=== PATIENT | female | born 1975 | race Caucasian/White ===

== ENCOUNTER 2016-12-13 21:11 | Emergency (ER) | payer MEDICAID, OTHER ==
[~2016-12-13] VITALS: Ht 149.9 cm; Wt 72.6 kg
[~2016-12-13 21:11] MED LIST: ASPI81CT89 PO; ATOR20TA PO; METF1000 PO; OMEP40EC1 PO
[2016-12-13 21:26] VITALS: BP 139/99
--- NOTE | 2016-12-13 22:07 | NUR ---
TO ER OF2
--- NOTE | 2016-12-13 22:12 | NUR ---
Patient being evaluated by physician.
[2016-12-13] MEDS ORDERED: NACL 0.9% 1,000 ML IV ONE (22:22)
[2016-12-13] MEDS ORDERED: ONDANSETRON 4 MG/2 ML VIAL IVP ONE (22:25)
[2016-12-13] MEDS ORDERED: MORPHINE SULFATE 4 MG/ML SYR IVP ONE (22:25)
--- NOTE | 2016-12-13 23:00 | NUR ---
MOVED TO ER BED 7
--- NOTE | 2016-12-13 23:10 | NUR ---
received pt from overflow
[2016-12-13 23:25] LABS: BASOPHILS # (AUTO) 0.1 K/uL (0.00-0.22); BASOPHILS % (AUTO) 1.6 % (0.0-2.0); EOSINOPHILS # (AUTO) 0.2 K/uL (0-0.4); EOSINOPHILS % (AUTO) 2.1 % (0.0-4.0); HEMATOCRIT 48.9 % (36-48); HEMOGLOBIN 16.6 g/dL (12.0-16.0); LYMPHOCYTES # (AUTO) 2.1 K/uL (2.5-16.5); LYMPHOCYTES % (AUTO) 28.1 % (20.5-51.1); MEAN CORPUSCULAR HEMOGLOBIN 31 pg (27-31); MEAN CORPUSCULAR HGB CONC 34 g/dL (33-37); MEAN CORPUSCULAR VOLUME 90 fL (80-94); MONOCYTES # (AUTO) 0.5 K/uL (0.8-1.0); MONOCYTES % (AUTO) 7.3 % (1.7-9.3); NEUTROPHILS # (AUTO) 4.5 K/uL (1.8-7.7); NEUTROPHILS % (AUTO) 60.9 % (42.2-75.2); PLATELET COUNT (AUTO) 249 K/uL (140-450); RED BLOOD CELL COUNT(AUTO) 5.42 MIL/uL (4.20-5.40); RED CELL DISTRIBUTION WIDTH 12.1 % (11.6-13.7); WHITE BLOOD COUNT (AUTO) 7.4 K/uL (4.8-10.8)
[2016-12-13 23:38] LABS: ALBUMIN 3.9 g/dL (3.4-5.0); ANION GAP 14.9 (8-16); CALCIUM 9.3 mg/dL (8.5-10.1); CARBON DIOXIDE 26.3 mmol/L (21-32); CREATININE 0.9 mg/dL (0.6-1.3); POTASSIUM 4.2 mmol/L (3.5-5.1); TOTAL BILIRUBIN 0.5 mg/dL (0.0-1.0); TOTAL PROTEIN, SERUM 8.4 g/dL (6.4-8.2)
[2016-12-13 23:56] LABS: LACTIC ACID 3.2 mmol/L (0.4-2.0)
[2016-12-14] MEDS ORDERED: NACL 0.9% 1,500 ML IV ONE
[2016-12-14] MEDS ORDERED: DICYCLOMINE 20 MG/2 ML VIAL IM ONE (00:10)
[2016-12-14] MEDS ORDERED: MORPHINE SULFATE 4 MG/ML SYR IVP ONE (00:10)
[2016-12-14] MEDS ORDERED: ONDANSETRON 4 MG/2 ML VIAL IVP ONE (00:10)
[2016-12-14 00:23] LABS: APPEARANCE,URINE CLOUDY (CLEAR); BILIRUBIN,URINE NEGATIVE (NEGATIVE); BLOOD, URINE 3+ (NEGATIVE); COLOR,URINE RED (YELLOW); LEUKOCYTE ESTERASE ,URINE NEGATIVE (NEGATIVE); NITRITE, URINE NEGATIVE (NEGATIVE); PROTEIN,URINE 1+ (NEGATIVE); UGLUCOSE 3+ (NEGATIVE); UROBILINOGEN,URINE 0.2 EU/dL (0.2 - 1)
[2016-12-14 00:27] LABS: BACTERIA,URINE OCCASSIONAL /HPF (None Seen); RBC,URINE TOO NUMEROUS TO COUN /HPF (0-5); SQUAMOUS EPITHELIAL CELL,UR 0-3 (FEW) /LPF (0-3 (FEW))
--- NOTE | 2016-12-14 02:34 | NUR ---
Patient discharged with v/s stable. Written and verbal after care instructions given and explained. Patient alert, oriented and verbalized understanding of instructions. Ambulatory with steady gait. All questions addressed prior to discharge. ID band removed. Patient advised to follow up with PMD. Rx of Bentyl, Cipro and Zofran given. Patient educated on indication of medication including possible reaction and side effects. Opportunity to ask questions provided and answered.
[2016-12-14 02:36] VITALS: BP 122/80
== END 2016-12-14 02:36 | disposition home or self-care (01) ==
LOC: MED 21:11
DX: N39.0 Urinary tract infection, site not specified (principal); R73.9 Hyperglycemia, unspecified; E11.9 Type 2 diabetes mellitus without complications; I10 Essential (primary) hypertension; Z90.49 Acquired absence of other specified parts of digestive tract
CPT/HCPCS: 36415; 74176; 80053; 81001; 81025; 83605; 83690; 85025; 87040; 87086; 96361; 96372; 96374; 96375; 96376; 99285; J0500; J2270; J2405; J7030

== ENCOUNTER 2017-04-06 19:35 | Emergency (ER) | payer OTHER ==
[~2017-04-06] VITALS: Ht 149.9 cm; Wt 72.6 kg
[2017-04-06 19:52] VITALS: BP 155/85
--- NOTE | 2017-04-06 20:04 | NUR ---
PT TAKEN TO BED 1
--- NOTE | 2017-04-06 20:10 | NUR ---
PATIENT PRESENTS TO ED WITH C/O BACK PAIN AND N/V/D SINCE LAST WEEK PT SKIN IS PINK/WARM/DRY; AAOX4 WITH EVEN AND STEADY GAIT; LUNGS CLEAR BL; HR EVEN AND REGULAR; PT DENIES ANY FEVER, CP, SOB, OR COUGH AT THIS TIME; PATIENT STATES PAIN OF 10/10 AT THIS TIME; VSS; PATIENT POSITIONED FOR COMFORT; HOB ELEVATED; BEDRAILS UP X2; BED DOWN. ER MD MADE AWARE OF PT STATUS.
--- NOTE | 2017-04-06 20:15 | NUR ---
PT MOVED TO OF
--- NOTE | 2017-04-06 21:47 | NUR ---
PT MOVED TO BED 2
--- NOTE | 2017-04-06 22:39 | NUR ---
Dr. Alexander evaluating patient at bedside.
[2017-04-06] MEDS ORDERED: NACL 0.9% 1,000 ML IV SCH (23:02)
[2017-04-06] MEDS ORDERED: metroNIDAZOLE 500 MG/NS PREMIX 100 ML IV STA (23:02)
[2017-04-06] MEDS ORDERED: MORPHINE SULFATE 2 MG/ML SYR IVP ONE (23:05)
[2017-04-06] MEDS ORDERED: ONDANSETRON 4 MG/2 ML VIAL IVP ONE (23:05)
--- NOTE | 2017-04-06 23:16 | NUR ---
PT TAKEN TO CT
[2017-04-06] MEDS ORDERED: MORPHINE SULFATE 4 MG/ML SYR ONE (23:22)
[2017-04-06 23:39] LABS: HEMATOCRIT 42.7 % (36-48); HEMOGLOBIN 14.6 g/dL (12.0-16.0); MEAN CORPUSCULAR HEMOGLOBIN 31 pg (27-31); MEAN CORPUSCULAR HGB CONC 34 g/dL (33-37); MEAN CORPUSCULAR VOLUME 92 fL (80-94); PLATELET COUNT (AUTO) 223 K/uL (140-450); RED BLOOD CELL COUNT(AUTO) 4.66 MIL/uL (4.20-5.40); RED CELL DISTRIBUTION WIDTH 11.6 % (11.6-13.7); WHITE BLOOD COUNT (AUTO) 5.6 K/uL (4.8-10.8)
[2017-04-06 23:53] LABS: ALBUMIN 3.5 g/dL (3.4-5.0); ANION GAP 16.4 (8-16); CARBON DIOXIDE 27.3 mmol/L (21-32); CREATININE 0.6 mg/dL (0.6-1.3); POTASSIUM 3.7 mmol/L (3.5-5.1); TOTAL BILIRUBIN 0.5 mg/dL (0.0-1.0)
[2017-04-07 00:04] LABS: APPEARANCE,URINE CLOUDY (CLEAR); BILIRUBIN,URINE NEGATIVE (NEGATIVE); BLOOD, URINE 1+ (NEGATIVE); COLOR,URINE YELLOW (YELLOW); LEUKOCYTE ESTERASE ,URINE TRACE (NEGATIVE); NITRITE, URINE NEGATIVE (NEGATIVE); UGLUCOSE 3+ (NEGATIVE)
[2017-04-07 00:14] LABS: LYMPHOCYTES % (MANUAL) 42 % (20-46); MONOCYTES % (MANUAL) 2 % (5-12)
[2017-04-07] MEDS ORDERED: MORPHINE SULFATE 4 MG/ML SYR IVP ONE (00:30)
[2017-04-07 00:44] LABS: RBC,URINE 3-10 (FEW) /HPF (0-5); WBC,URINE TOO MANY TO COUNT /HPF (0-5)
[2017-04-07 00:45] LABS: YEAST,URINE Many /HPF (None Seen)
--- NOTE | 2017-04-07 01:21 | NUR ---
Patient discharged with v/s stable. Written and verbal after care instructions given and explained. Patient alert, oriented and verbalized understanding of instructions. Ambulatory with steady gait. All questions addressed prior to discharge. ID band removed. Patient advised to follow up with PMD. Rx of NORCO, ZOFRAN AND FLAGYL given. Patient educated on indication of medication including possible reaction and side effects. Opportunity to ask questions provided and answered.
[2017-04-07 01:23] VITALS: BP 135/81
== END 2017-04-07 01:21 | disposition home or self-care (01) ==
LOC: MED 19:35
DX: M54.5 Low back pain (principal); R10.9 Unspecified abdominal pain; R19.7 Diarrhea, unspecified; R63.0 Anorexia; E11.9 Type 2 diabetes mellitus without complications; I10 Essential (primary) hypertension; Z90.49 Acquired absence of other specified parts of digestive tract; Z79.899 Other long term (current) drug therapy; Z79.84 Long term (current) use of oral hypoglycemic drugs
CPT/HCPCS: 36415; 74176; 80053; 81001; 81025; 83690; 85025; 87086; 96365; 96375; 96376; 99285; J2270; J2405; J3490; J7030; 84703

== ENCOUNTER 2017-06-11 12:04 | Emergency (ER) | payer OTHER ==
[~2017-06-11] VITALS: Ht 149.9 cm; Wt 69.4 kg
[2017-06-11 12:08] VITALS: BP 160/106
--- NOTE | 2017-06-11 12:12 | NUR ---
EKG DONE IN TRIAGE. SHOWN TO DR. ARAYA. PT OKAY TO WAIT IN ER LOBBY FOR BED.
--- NOTE | 2017-06-11 13:32 | NUR ---
PT TAKEN TO BED 11.
[2017-06-11] MEDS ORDERED: ASPIRIN 81 MG TAB.CHEW PO ONE (14:15)
[2017-06-11] MEDS ORDERED: KETOROLAC 60 MG/2 ML VIAL IM ONE (14:15)
[2017-06-11 15:01] LABS: BASOPHILS # (AUTO) 0.3 K/uL (0.00-0.22); EOSINOPHILS # (AUTO) 0.1 K/uL (0-0.4); HEMATOCRIT 46.5 % (36-48); HEMOGLOBIN 15.9 g/dL (12.0-16.0); LYMPHOCYTES # (AUTO) 1.7 K/uL (2.5-16.5); MEAN CORPUSCULAR HEMOGLOBIN 31 pg (27-31); MEAN CORPUSCULAR HGB CONC 34 g/dL (33-37); MEAN CORPUSCULAR VOLUME 90 fL (80-94); MONOCYTES # (AUTO) 0.3 K/uL (0.8-1.0); NEUTROPHILS # (AUTO) 4.1 K/uL (1.8-7.7); PLATELET COUNT (AUTO) 212 K/uL (140-450); RED BLOOD CELL COUNT(AUTO) 5.16 MIL/uL (4.20-5.40); RED CELL DISTRIBUTION WIDTH 11.6 % (11.6-13.7); WHITE BLOOD COUNT (AUTO) 6.5 K/uL (4.8-10.8)
[2017-06-11] MEDS ORDERED: INSULIN HUMAN REGULAR 100 UNITS/ML 10 ML VIAL SUBQ ONE (15:15)
[2017-06-11 15:19] LABS: ANION GAP 13.2 (8-16); CARBON DIOXIDE 29.7 mmol/L (21-32); CREATININE 0.7 mg/dL (0.6-1.3); POTASSIUM 4.9 mmol/L (3.5-5.1); PROTHROMBIN TIME 9.7 secs (10.8-13.4)
[2017-06-11 15:26] LABS: ALBUMIN 3.8 g/dL (3.4-5.0); TOTAL BILIRUBIN 0.6 mg/dL (0.0-1.0)
[2017-06-11 17:08] VITALS: BP 109/74
== END 2017-06-11 17:08 | disposition home or self-care (01) ==
LOC: MED 12:04
DX: R07.89 Other chest pain (principal); E11.9 Type 2 diabetes mellitus without complications; I10 Essential (primary) hypertension
CPT/HCPCS: 36415; 71045; 80053; 82948; 83880; 84484; 85025; 85610; 85730; 93005; 96372; 99285; J1815; J1885; Q0092

== ENCOUNTER 2018-05-31 18:49 | Inpatient (IN) | payer OTHER ==
[~2018-05-31] VITALS: Ht 149.9 cm; Wt 68.0 kg
[~2018-05-31 18:49] MED LIST changes: -ASPI81CT89 PO; -OMEP40EC1 PO
[2018-05-31 19:22] VITALS: BP 157/100
--- NOTE | 2018-05-31 19:25 | NUR ---
PT AMBULATED TO BED 6 WITH VSS.
--- NOTE | 2018-05-31 19:38 | NUR ---
PT PRESENTS TO ED WITH C/O RUQ PAIN WITH NAUSEA, DIARRHEA WITH SUDDEN ONSET X 2 HRS. ABD IS SOFT, NON TENDER. PT REPORTS PAIN UPON PALAPTION TO RUQ. BOWEL SOUNDS ACTIVE TO ALL QUADRANTS. PT PLACED INTO BED, PENDING MD PRATER. PMH--DM, HTN RX--METFORMIN, METOPROLOL
--- NOTE | 2018-05-31 19:41 | NUR ---
Patient being evaluated by physician at bedside.
[2018-05-31] MEDS ORDERED: NACL 0.9% 1,000 ML IV SCH (19:42)
[2018-05-31] MEDS ORDERED: ONDANSETRON 4 MG/2 ML VIAL IVP ONE (19:45)
[2018-05-31] MEDS ORDERED: KETOROLAC 30 MG/ML VIAL IVP ONE (19:45)
[2018-05-31 20:07] LABS: BASOPHILS % (AUTO) 0.3 % (0.0-2.0); EOSINOPHILS % (AUTO) 0.5 % (0.0-4.0); HEMATOCRIT 48.1 % (36-48); HEMOGLOBIN 16.3 g/dL (12.0-16.0); LYMPHOCYTES # (AUTO) 1.6 K/uL (2.5-16.5); LYMPHOCYTES % (AUTO) 20.3 % (20.5-51.1); MEAN CORPUSCULAR HEMOGLOBIN 32 pg (27-31); MEAN CORPUSCULAR HGB CONC 34 g/dL (33-37); MEAN CORPUSCULAR VOLUME 92.9 fL (80-94); MONOCYTES # (AUTO) 0.4 K/uL (0.8-1.0); MONOCYTES % (AUTO) 5.3 % (1.7-9.3); NEUTROPHILS # (AUTO) 5.7 K/uL (1.8-7.7); NEUTROPHILS % (AUTO) 73.6 % (42.2-75.2); PLATELET COUNT (AUTO) 187 K/uL (140-450); RED BLOOD CELL COUNT(AUTO) 5.18 MIL/uL (4.20-5.40); RED CELL DISTRIBUTION WIDTH 12.7 % (11.6-13.7); WHITE BLOOD COUNT (AUTO) 7.7 K/uL (4.8-10.8)
[2018-05-31 20:09] LABS: BILIRUBIN,URINE NEGATIVE (NEGATIVE); BLOOD, URINE 1+ (NEGATIVE); COLOR,URINE YELLOW (YELLOW); LEUKOCYTE ESTERASE ,URINE NEGATIVE (NEGATIVE); NITRITE, URINE NEGATIVE (NEGATIVE); UGLUCOSE 3+ (NEGATIVE)
[2018-05-31 20:10] LABS: APPEARANCE,URINE HAZY (CLEAR)
[2018-05-31 20:16] LABS: RBC,URINE 3-10 (FEW) /HPF (0-5); WBC,URINE 6-15 (FEW) /HPF (0-5); YEAST,URINE Few /HPF (None Seen)
[2018-05-31 20:21] LABS: ALBUMIN 3.7 g/dL (3.4-5.0); ANION GAP 16.6 (8-16); CARBON DIOXIDE 23.4 mmol/L (21-32); CREATININE 0.8 mg/dL (0.6-1.3); TOTAL BILIRUBIN 0.4 mg/dL (0.0-1.0)
[2018-05-31] MEDS ORDERED: MORPHINE SULFATE 4 MG/ML SYR IVP ONE (20:50)
[2018-05-31] MEDS ORDERED: PIPERACILLIN/TAZOBACTAM 3.375 GM in DEXTROSE 5% 50 ML IV ONE (21:00)
[2018-05-31] MEDS ORDERED: MORPHINE SULFATE 4 MG/ML SYR ONE (21:05)
[2018-05-31] MEDS ORDERED: PIPERACILLIN/TAZOBACTAM 3.375 GM VIAL IV ONE (21:13)
--- NOTE | 2018-05-31 21:30 | NUR ---
PT ARRIVED ON UNIT VIA GURNEY WITH ER NURSE, ALEXANDR. PT ABLE OT AMBULATE FORM GURNEY INTO BED. PT ACCOMPANIED BY DAUGHTER. PT IS AAOX4. PT IS ON RA WITH RESPIRATIONS EVEN AND UNLABORED. PT SKIN IS INTACT. IV ACCESS IN R WRIST 24G WITH ZOSYN CURRENTLY INFUSING. PT C/O PAIN IN RUQ. MRSA SWAB COLLECTED. VS TAKEN AND WNL. ORIENTED PT TO ROOM AND USE OF CALL LIGHT. BED IS LOCKED, LOW POSITION WITH SIDE RAILS UP X2. BOARD UPDATED. CALL LIGHT IS WITHIN REACH. WILL CONTINUE TO MONITOR PT.
--- NOTE | 2018-05-31 21:30 | NUR ---
Patient will be admitted to care of DR SIMEON. Admited to MED/SURG. Will go to room 104-B. Belongings list completed. Report to MITCH CUELLAR.
[2018-05-31] MEDS ORDERED: DEXTROSE 50% 50 ML SYR IVP PRN (22:20)
--- NOTE | 2018-05-31 23:02 | NUR ---
PT IV INFILTRATED. TWO ATTEMPTS MADE AT STARTING NEW IV ACCESS, UNSUCCESSFUL. CALLED ER CHARGE NURSE, TORO, WILL COME TO TRY AND START IV.
[2018-06-01] VITALS: BP 139/96
--- NOTE | 2018-06-01 00:11 | NUR ---
IV ACCESS STARTED IN L HAND 24G. PT TOLERATED WELL. NO S/S OF DISTRESS. WILL CONTINUE TO MONITOR.
[2018-06-01] MEDS: ONDANSETRON 4 MG/2 ML VIAL IVP PRN ×3 (00:23→20:40)
[2018-06-01] MEDS: MORPHINE SULFATE 4 MG/ML SYR IVP PRN ×4 (00:23→14:47)
[2018-06-01] MEDS: NACL 0.9% 1,000 ML IV SCH ×3 (00:33→20:45)
--- NOTE | 2018-06-01 00:33 | NUR ---
ORDERED IVF STARTED.
--- NOTE | 2018-06-01 01:23 | NUR ---
PT ASLEEP IN BED. NO SIGNS OR SYMPTOMS OF DISTRESS. WILL CONTINUE TO MONITOR.
--- NOTE | 2018-06-01 03:23 | NUR ---
PT C/O PAIN, MORPHINE GIVEN. PT TOLERATED WELL. NO S/S OF DISTRESS. WILL CONTINUE TO MONITOR.
[2018-06-01] MEDS ORDERED: PIPERACILLIN/TAZOBACTAM 3.375 GM VIAL IV ONE (05:20)
[2018-06-01] MEDS: BLOOD GLUCOSE MONITORING 1 DEV DEV FS SCH ×4 (05:26→20:40)
[2018-06-01] MEDS: INSULIN LISPRO SLIDING SCALE 100 UNITS/ML VIAL SUBQ PRN ×3 (05:30→20:44)
--- NOTE | 2018-06-01 05:30 | NUR ---
SCHEDULED MEDICATION ADMINISTERED. INSULIN COVERAGE GIVEN FOR BS 294 PER MD ORDERS. PT TOLERATED WELL. NO SIGNS OR SYMPTOMS OF DISTRESS. WILL CONTINUE TO MONITOR.
[2018-06-01] MEDS ORDERED: PIPER/TAZO 3.375GM/D5W PREMIX 50 ML IV SCH (06:00)
[2018-06-01 06:59] LABS: BASOPHILS % (AUTO) 0.5 % (0.0-2.0); EOSINOPHILS # (AUTO) 0.1 K/uL (0-0.4); EOSINOPHILS % (AUTO) 1.1 % (0.0-4.0); HEMATOCRIT 44.8 % (36-48); LYMPHOCYTES # (AUTO) 2.6 K/uL (2.5-16.5); MEAN CORPUSCULAR HEMOGLOBIN 31 pg (27-31); MEAN CORPUSCULAR HGB CONC 34 g/dL (33-37); MEAN CORPUSCULAR VOLUME 93.6 fL (80-94); MONOCYTES # (AUTO) 0.3 K/uL (0.8-1.0); MONOCYTES % (AUTO) 5.3 % (1.7-9.3); NEUTROPHILS # (AUTO) 2.3 K/uL (1.8-7.7); NEUTROPHILS % (AUTO) 44.1 % (42.2-75.2); PLATELET COUNT (AUTO) 207 K/uL (140-450); RED BLOOD CELL COUNT(AUTO) 4.79 MIL/uL (4.20-5.40); RED CELL DISTRIBUTION WIDTH 12.7 % (11.6-13.7); WHITE BLOOD COUNT (AUTO) 5.2 K/uL (4.8-10.8)
--- NOTE | 2018-06-01 07:10 | NUR ---
PT REPORT RECEIVED FROM DAYCARE ASSISTANT NURSE. PT IS AWAKE AT THIS TIME, NO S/S OF DISTRESS, SOB, OR C/O PAIN AT THIS TIME. CALL LIGHT IS WITHIN REACH. PT IS ON ROOM AIR, SKIN IS INTACT. IV SITE NOTED ON THE L HAND, 24 GAUGE, INFUSING NS 70 ML/HR. IV PATENT AND INTACT. WILL CONTINUE TO MONITOR.
--- NOTE | 2018-06-01 07:23 | NUR ---
ENDORSED PT TO DAY SHIFT NURSE FOR CONTINUITY OF CARE. PT IN STABLE CONDITION.
[2018-06-01 07:40] LABS: ALBUMIN 3.2 g/dL (3.4-5.0); ANION GAP 13.3 (8-16); CARBON DIOXIDE 26.3 mmol/L (21-32); CREATININE 0.7 mg/dL (0.6-1.3); POTASSIUM 3.6 mmol/L (3.5-5.1); TOTAL BILIRUBIN 0.5 mg/dL (0.0-1.0)
[2018-06-01 08:00] VITALS: BP 103/65
--- NOTE | 2018-06-01 08:19 | NUR ---
PATIENT HAS BEEN SCREENED AND CATEGORIZED MODERATE NUTRITION RISK. PATIENT WILL BE SEEN WITHIN 3-5 DAYS OF ADMISSION. 06/03/18 06/05/[address]
--- NOTE | 2018-06-01 08:20 | NUR ---
PT C/O 01/02 ABD PAIN AND NAUSEA. WILL ADMINISTER PAIN MEDICINE AND NAUSEA MEDICINE.
--- NOTE | 2018-06-01 10:20 | NUR ---
PT AWAKE AND ALERT, NO S/S OF ACUTE DISTRESS. DAUGHTER VISITING AT BEDSIDE. CALL LIGHT WITHIN REACH. WILL CONTINUE TO MONITOR.
--- NOTE | 2018-06-01 10:44 | NUR ---
PT OFF THE FLOOR FOR ABD CT SCAN AT THIS TIME.
--- NOTE | 2018-06-01 11:00 | NUR ---
PT BACK ON THE UNIT FROM CT SCAN.
[2018-06-01] MEDS: PIPER/TAZO 3.375GM/D5W PREMIX 50 ML IV SCH ×2 (13:02→20:40)
--- NOTE | 2018-06-01 13:02 | NUR ---
CM NOTE PER SASCHA OF DR. YASMEEN HARRISON' (PCP) CLINIC PH# [phone], PATIENT IS SCHEDULED FOR OUTPATIENT FOLLOW UP APPOINTMENT ON JUNE 11, 2018 11:00 AM AT THE CLINIC AT [address] [place] [id number] Addendum: 06/01/18 at 1317 by Jaz Anderson CM I GAVE THE PATIENT A COPY OF HER OUTPATIENT FF UP SCHEDULE
--- NOTE | 2018-06-01 14:56 | NUR ---
CM NOTE CHART REVIEW DONE
[2018-06-01 16:00] VITALS: BP 97/60
--- NOTE | 2018-06-01 19:20 | NUR ---
RECEIVED REPORT FROM DAY SHIFT NURSE, SAMANTHA, AT PT BEDSIDE. PT IS ASLEEP IN BED BUT EASILY AROUSABLE. PT IS ON RA WITH RESPIRATIONS EVEN AND UNLABORED. PT SKIN IS INTACT. IV ACCESS IN L HAND 24G WITH IVF RUNNING PER MD ORDERS. IV IS PATENT AND INTACT. BED IS LOCKED, LOW POSITION WITH SIDE RAILS UP X2. BOARD UPDATED. CALL LIGHT IS WITHIN REACH. WILL CONTINUE TO MONITOR PT.
--- NOTE | 2018-06-01 19:20 | NUR ---
PT ENDORSED TO REGISTERED NURSE CARDIAC IN STABLE CONDITION.
[2018-06-01] MEDS: PANTOPRAZOLE 40 MG TABEC PO SCH (20:41)
--- NOTE | 2018-06-01 20:45 | NUR ---
ADMINISTERED SCHEDULED MEDICATIONS. PT C/O NAUSEA, ZOFRAN GIVEN. PT TOLERATED WELL. NO SIGNS OR SYMPTOMS OF DISTRESS. WILL CONTINUE TO MONITOR.
[2018-06-02] VITALS: BP 117/70
--- NOTE | 2018-06-02 00:03 | NUR ---
VS WNL. PT RESTING COMFORTABLY IN BED. NO SIGNS OR SYMPTOMS OF DISTRESS. WILL CONTINUE TO MONITOR.
--- NOTE | 2018-06-02 02:37 | NUR ---
PT ASLEEP IN BED. NO SIGNS OR SYMPTOMS OF DISTRESS. WILL CONTINUE TO MONITOR.
[2018-06-02] MEDS: NACL 0.9% 1,000 ML IV SCH (04:02)
--- NOTE | 2018-06-02 04:03 | NUR ---
NEW BAG OF IVF STARTED.
[2018-06-02] MEDS: BLOOD GLUCOSE MONITORING 1 DEV DEV FS SCH ×2 (05:32→11:30)
[2018-06-02] MEDS: PIPER/TAZO 3.375GM/D5W PREMIX 50 ML IV SCH ×2 (05:35→13:24)
[2018-06-02] MEDS: INSULIN LISPRO SLIDING SCALE 100 UNITS/ML VIAL SUBQ PRN ×2 (05:38→14:22)
--- NOTE | 2018-06-02 05:39 | NUR ---
ADMINISTERED SCHEDULED MEDICATION. INSULIN COVERAGE GIVEN FOR BS 232 PER MD ORDERS. PT TOLERATED WELL. ALL OTHER NEEDS ARE MET AT THIS TIME. WILL CONTINUE TO MONITOR.
--- NOTE | 2018-06-02 07:10 | NUR ---
RECEIVED PT REPORT FROM WALL WORKER NURSE. PT IS ASLEEP AT THIS TIME, NO S/S OF DISTRESS. ON ROOM AIR, SKIN INTACT. IV NS INFUSING AT 100 ML/HR. CALL LIGHT WITHIN REACH. WILL CONTINUE TO MONITOR.
--- NOTE | 2018-06-02 07:18 | NUR ---
ENDORSED PT TO DAY SHIFT NURSE FOR CONTINUITY OF CARE. PT IN STABLE CONDITION.
[2018-06-02 07:44] LABS: BASOPHILS % (AUTO) 0.5 % (0.0-2.0); EOSINOPHILS % (AUTO) 0.6 % (0.0-4.0); HEMATOCRIT 41.2 % (36-48); LYMPHOCYTES # (AUTO) 1.4 K/uL (2.5-16.5); LYMPHOCYTES % (AUTO) 27.9 % (20.5-51.1); MEAN CORPUSCULAR HEMOGLOBIN 32 pg (27-31); MEAN CORPUSCULAR HGB CONC 34 g/dL (33-37); MEAN CORPUSCULAR VOLUME 94.1 fL (80-94); MONOCYTES # (AUTO) 0.3 K/uL (0.8-1.0); NEUTROPHILS # (AUTO) 3.2 K/uL (1.8-7.7); PLATELET COUNT (AUTO) 194 K/uL (140-450); RED BLOOD CELL COUNT(AUTO) 4.38 MIL/uL (4.20-5.40); RED CELL DISTRIBUTION WIDTH 12.7 % (11.6-13.7)
[2018-06-02 08:00] VITALS: BP 104/66
[2018-06-02 08:28] LABS: ALBUMIN 2.7 g/dL (3.4-5.0); ANION GAP 12.7 (8-16); CARBON DIOXIDE 25.7 mmol/L (21-32); CREATININE 0.6 mg/dL (0.6-1.3); POTASSIUM 3.4 mmol/L (3.5-5.1); TOTAL BILIRUBIN 0.6 mg/dL (0.0-1.0)
[2018-06-02] MEDS ORDERED: POTASSIUM CHLORIDE 10 MEQ TABER PO SCH (09:30)
[2018-06-02] MEDS ORDERED: AMOX500C25 PO (09:34)
[2018-06-02] MEDS: PANTOPRAZOLE 40 MG TABEC PO SCH (09:40)
--- NOTE | 2018-06-02 09:40 | NUR ---
PT SEEN BY DR SIMEON. PER , PT CAN DISCHARGE IF SHE CAN TOLERATE SOLID FOOD. SANDWICH PROVIDED FOR PT. WILL CONTINUE TO MONITOR PT.
--- NOTE | 2018-06-02 14:45 | NUR ---
PT HAS DISCHARGED. DISCHARGE INSTRUCTIONS AND PRESCRIPTION GIVEN. PT VERBALIZED UNDERSTANDING AND SIGNED THE DISCHARGE DOCUMENTS. WRIST BAND REMOVED, IV SITE DC'D. PT REFUSED FLU VACCINE. PT LEFT WITH ALL HER BELONGINGS IN STABLE CONDITION.
== END 2018-06-02 14:40 | disposition home or self-care (01) | DRG 282 ==
LOC: MED 18:49 → MTU 21:03
PROVIDERS: ADMIT Internal Medicine; ATTEND Internal Medicine
DX: K85.90 Acute pancreatitis without necrosis or infection, unspecified (principal); E11.65 Type 2 diabetes mellitus with hyperglycemia; E87.1 Hypo-osmolality and hyponatremia; N39.0 Urinary tract infection, site not specified; E66.9 Obesity, unspecified; E78.5 Hyperlipidemia, unspecified; I10 Essential (primary) hypertension; Z90.49 Acquired absence of other specified parts of digestive tract; Z68.30 Body mass index [BMI] 30.0-30.9, adult
CPT/HCPCS: 36415; 80053; 81001; 82948; 83036; 83690; 84478; 85025; 87040; 87081; 87086; 96361; 96374; 96375; 99285; J1885; J2270; J2405; J2543; J7030; J7060

== ENCOUNTER 2019-01-03 00:20 | Emergency (ER) | payer OTHER ==
[~2019-01-03] VITALS: Ht 149.9 cm; Wt 65.8 kg
[~2019-01-03 00:20] MED LIST changes: +AMOX500C25 PO
[2019-01-03 00:24] VITALS: BP 160/96
[2019-01-03] MEDS: KETOROLAC 30 MG/ML VIAL IM ONE (01:48)
[2019-01-03] MEDS: TETRACAINE HCL/PF 0.5% OPTH 4 ML BTL OP ONE (02:18)
[2019-01-03] MEDS: FLUORESCEIN OPTH STRIP 0.6 MG OP ONE (02:18)
[2019-01-03] MEDS: fentaNYL 0.05 MG/ML VIAL NS ONE (02:56)
[2019-01-03 04:19] VITALS: BP 103/55
== END 2019-01-03 04:19 | disposition home or self-care (01) ==
LOC: MED 00:20
DX: R51 Headache (principal); H53.142 Visual discomfort, left eye; R11.0 Nausea; I10 Essential (primary) hypertension; E11.9 Type 2 diabetes mellitus without complications; Z86.79 Personal history of other diseases of the circulatory system; Z79.2 Long term (current) use of antibiotics; Z79.84 Long term (current) use of oral hypoglycemic drugs; Z79.899 Other long term (current) drug therapy; Z90.49 Acquired absence of other specified parts of digestive tract
CPT/HCPCS: 70450; 96372; 99284; J1885; J3010

== ENCOUNTER 2019-05-03 19:20 | Emergency (ER) | payer OTHER ==
[~2019-05-03] VITALS: Ht 149.9 cm; Wt 72.6 kg
[2019-05-03 19:20] VITALS: BP_SYST 132
--- NOTE | 2019-05-03 19:23 | NUR ---
TO LOBBY A/W BED AMBULATORY
--- NOTE | 2019-05-03 19:46 | NUR ---
PT TAKEN TO BED 6
--- NOTE | 2019-05-03 19:50 | NUR ---
Dr. Swenson examining patient.
--- NOTE | 2019-05-03 20:02 | NUR ---
pt arrived to ed c/o abd pain x friday. pain LEvel 10/10 and describes it as pressure. denies any fever, D,blood in urine, or dysuria. PT HAS VOMITING 3 EPISODES TOTAL, AND CHANGE OF APPETITE. PT IN APPEARNACE LOOKS WEAK, FATIGUE. NO RESP DISTRESS NOTED. ABD IS SOFT, FLAT, AND TENDER ON RIGHT QUADS. BS ACTIVE. DENIES ANY BLOOD IN THE STOOL OR VOMIT. VSS. NKA. PMH: DM,HTN, GALLSTONES.
[2019-05-03] MEDS ORDERED: NACL 0.9% 1,000 ML IV ONE (20:16)
[2019-05-03] MEDS ORDERED: MORPHINE SULFATE 4 MG/ML SYR IVP ONE (20:20)
[2019-05-03] MEDS ORDERED: ONDANSETRON 4 MG/2 ML VIAL IVP ONE (20:20)
[2019-05-03 20:48] LABS: BASOPHILS % (AUTO) 0.5 % (0.0-2.0); HEMATOCRIT 45.6 % (36-48); HEMOGLOBIN 15.5 g/dL (12.0-16.0); LYMPHOCYTES % (AUTO) 39.7 % (20.5-51.1); MEAN CORPUSCULAR HEMOGLOBIN 32 pg (27-31); MEAN CORPUSCULAR HGB CONC 34 g/dL (33-37); MEAN CORPUSCULAR VOLUME 92.8 fL (80-94); MONOCYTES # (AUTO) 0.3 K/uL (0.8-1.0); MONOCYTES % (AUTO) 5.6 % (1.7-9.3); NEUTROPHILS # (AUTO) 2.7 K/uL (1.8-7.7); NEUTROPHILS % (AUTO) 53.2 % (42.2-75.2); PLATELET COUNT (AUTO) 240 K/uL (140-450); RED BLOOD CELL COUNT(AUTO) 4.91 MIL/uL (4.20-5.40); RED CELL DISTRIBUTION WIDTH 12.3 % (11.6-13.7)
--- NOTE | 2019-05-03 20:48 | NUR ---
PT TRANSFER TO CT VIA WHEELCHAIR.
[2019-05-03 21:00] LABS: APPEARANCE,URINE CLEAR (CLEAR); BILIRUBIN,URINE NEGATIVE (NEGATIVE); BLOOD, URINE NEGATIVE (NEGATIVE); LEUKOCYTE ESTERASE ,URINE NEGATIVE (NEGATIVE); NITRITE, URINE NEGATIVE (NEGATIVE); PH,URINE 5.5 (5.0-9.0); UGLUCOSE 3+ (NEGATIVE)
[2019-05-03 21:03] LABS: COLOR,URINE STRAW (YELLOW)
--- NOTE | 2019-05-03 21:12 | NUR ---
PT RETURN FROM CT
[2019-05-03 21:25] LABS: ANION GAP 16.5 (8-16); CARBON DIOXIDE 27.2 mmol/L (21-32); CREATININE 0.7 mg/dL (0.6-1.3); POTASSIUM 3.7 mmol/L (3.5-5.1)
[2019-05-03 21:31] LABS: ALBUMIN 3.6 g/dL (3.4-5.0); TOTAL BILIRUBIN 0.4 mg/dL (0.0-1.0)
[2019-05-03] MEDS ORDERED: KETOROLAC 30 MG/ML VIAL IVP ONE (21:55)
[2019-05-03 22:36] VITALS: BP 132/70
--- NOTE | 2019-05-03 22:37 | NUR ---
Patient discharged with v/s stable. Written and verbal after care instructions given and explained. Patient alert, oriented and verbalized understanding of instructions. Ambulatory with steady gait. All questions addressed prior to discharge. ID band removed. Patient advised to follow up with PMD. Rx of NAPROSYN, AND NORCO given. Patient educated on indication of medication including possible reaction and side effects. Opportunity to ask questions provided and answered.
== END 2019-05-03 22:37 | disposition home or self-care (01) ==
LOC: MED 19:20
DX: R10.31 Right lower quadrant pain (principal); E11.9 Type 2 diabetes mellitus without complications; I10 Essential (primary) hypertension; Z79.899 Other long term (current) drug therapy; Z79.82 Long term (current) use of aspirin; Z87.19 Personal history of other diseases of the digestive system
CPT/HCPCS: 36415; 74176; 80053; 81003; 81025; 83690; 85025; 96374; 96375; 99284; J1885; J2270; J2405

== ENCOUNTER 2019-10-22 23:46 | Emergency (ER) | payer OTHER ==
[~2019-10-22] VITALS: Ht 149.9 cm; Wt 68.0 kg
[2019-10-22 23:54] VITALS: BP 143/92
--- NOTE | 2019-10-23 00:12 | NUR ---
PT IS AAOX4, AMBULATORY AND PLACE IN BED 4, GOWNED. PT CARE TO CARMENZA MEYER. DR DAVIS AT [facility] BEDSIDE EXAMINING THE PT.
[2019-10-23] MEDS ORDERED: diphenhydrAMINE 50 MG/ML VIAL IM ONE (00:20)
[2019-10-23] MEDS ORDERED: PROCHLORPERAZINE 10 MG/2 ML VIAL IM ONE (00:20)
[2019-10-23 00:39] VITALS: BP 143/92
--- NOTE | 2019-10-23 00:39 | NUR ---
Patient discharged with v/s stable. Written and verbal after care instructions given and explained. Patient verbalized understanding. Ambulatory with steady gait. All questions addressed prior to discharge. Advised to follow up with PMD.
== END 2019-10-23 00:40 | disposition home or self-care (01) ==
LOC: MED 23:46
DX: G43.909 Migraine, unspecified, not intractable, without status migrainosus (principal); H10.89 Other conjunctivitis; E11.9 Type 2 diabetes mellitus without complications; I10 Essential (primary) hypertension; Z79.899 Other long term (current) drug therapy; Z79.84 Long term (current) use of oral hypoglycemic drugs
CPT/HCPCS: 96372; 99284; J0780; J1200

== ENCOUNTER 2019-12-02 16:16 | Emergency (ER) | payer OTHER, SELFPAY ==
[~2019-12-02] VITALS: Ht 149.9 cm; Wt 69.9 kg
[2019-12-02 16:46] VITALS: BP 154/86
[2019-12-02] MEDS ORDERED: ACETAMINOPHEN 325 MG TAB PO ONE (16:50)
[2019-12-02 17:25] VITALS: BP 132/67
== END 2019-12-02 17:24 | disposition home or self-care (01) ==
LOC: MED 16:16 → EEVIPCON 16:16 → MED 17:24
DX: U07.1 COVID-19 (principal); E11.9 Type 2 diabetes mellitus without complications; I10 Essential (primary) hypertension; I51.89 Other ill-defined heart diseases; Z90.49 Acquired absence of other specified parts of digestive tract; Z79.899 Other long term (current) drug therapy
CPT/HCPCS: 71045; 99284; U0003

== ENCOUNTER 2023-03-09 00:26 | Emergency (ER) | payer OTHER ==
[~2023-03-09] VITALS: Ht 149.9 cm; Wt 65.8 kg
[~2023-03-09 00:26] MED LIST changes: +METF-1274 PO; -METF1000 PO
[2023-03-09 00:29] VITALS: BP 164/92; PULSE 110; RESP 16; TEMP 96.3; O2SAT 98
[2023-03-09] MEDS ORDERED: KETOROLAC 30 MG/ML VIAL IVP ONE (02:20)
[2023-03-09] MEDS ORDERED: NACL 0.9% 1,000 ML IV ONE (02:20)
[2023-03-09 02:55] LABS: BASOPHILS % (AUTO) 0.3 % (0.0-2.0); EOSINOPHILS # (AUTO) 0.1 K/uL (0-0.4); EOSINOPHILS % (AUTO) 1.5 % (0.0-4.0); HEMOGLOBIN 13.4 g/dL (12.0-16.0); LYMPHOCYTES # (AUTO) 2.2 K/uL (2.5-16.5); LYMPHOCYTES % (AUTO) 22.3 % (20.5-51.1); MEAN CORPUSCULAR HEMOGLOBIN 31 pg (27-31); MEAN CORPUSCULAR HGB CONC 34 g/dL (33-37); MEAN CORPUSCULAR VOLUME 91.2 fL (80-94); MONOCYTES # (AUTO) 0.7 K/uL (0.8-1.0); MONOCYTES % (AUTO) 7.2 % (1.7-9.3); NEUTROPHILS # (AUTO) 6.6 K/uL (1.8-7.7); NEUTROPHILS % (AUTO) 68.7 % (42.2-75.2); PLATELET COUNT (AUTO) 290 K/uL (140-450); RED BLOOD CELL COUNT(AUTO) 4.27 MIL/uL (4.20-5.40); RED CELL DISTRIBUTION WIDTH 13.2 % (11.6-13.7); WHITE BLOOD COUNT (AUTO) 9.7 K/uL (4.8-10.8)
[2023-03-09 03:03] LABS: ALBUMIN 3.9 g/dL (3.4-5.0); ANION GAP 12.8 (8-16); CALCIUM 9.9 mg/dL (8.5-10.1); CREATININE 0.9 mg/dL (0.6-1.3); POTASSIUM 3.8 mmol/L (3.5-5.1); TOTAL BILIRUBIN 0.3 mg/dL (0.0-1.0); TOTAL PROTEIN, SERUM 8.5 g/dL (6.4-8.2)
[2023-03-09 03:40] LABS: FLU A ANTIGEN negative (NEGATIVE); FLU B ANTIGEN NEGATIVE (NEGATIVE)
[2023-03-09 04:35] LABS: APPEARANCE,URINE SL CLOUDY (CLEAR); BILIRUBIN,URINE NEGATIVE (NEGATIVE); BLOOD, URINE NEGATIVE (NEGATIVE); COLOR,URINE YELLOW (YELLOW); LEUKOCYTE ESTERASE ,URINE NEGATIVE (NEGATIVE); NITRITE, URINE NEGATIVE (NEGATIVE); PH,URINE 5.5 (5.0-9.0); PROTEIN,URINE TRACE (NEGATIVE); UGLUCOSE 3+ (NEGATIVE); UROBILINOGEN,URINE 0.2 EU/dL (0.2 - 1)
[2023-03-09 04:46] LABS: BACTERIA,URINE 3+ /HPF (None Seen); RBC,URINE NONE SEEN /HPF (0-5); SQUAMOUS EPITHELIAL CELL,UR 20-50 /LPF (0-3 (FEW)); WBC,URINE 0-5 /HPF (0-5)
[2023-03-09] MEDS ORDERED: ACET-10509 PO (05:10)
[2023-03-09] MEDS ORDERED: CEPH-588 PO (05:10)
[2023-03-09] MEDS ORDERED: IBUP-2213 PO (05:10)
[2023-03-09 05:31] VITALS: BP 121/76; PULSE 86; RESP 16; TEMP 98.6; O2SAT 99
== END 2023-03-09 05:31 | disposition home or self-care (01) ==
LOC: MED 00:26
DX: N39.0 Urinary tract infection, site not specified (principal); Z20.822 Contact with and (suspected) exposure to COVID-19; B34.9 Viral infection, unspecified; E11.9 Type 2 diabetes mellitus without complications; I11.9 Hypertensive heart disease without heart failure; Z79.4 Long term (current) use of insulin; Z79.899 Other long term (current) drug therapy
CPT/HCPCS: 36415; 71045; 80053; 81001; 85025; 87086; 87426; 87804; 96361; 96374; 99285; J1885; J7030

== ENCOUNTER 2023-07-10 | Emergency (ER) | payer OTHER ==
[~2023-07-10] VITALS: Ht 149.9 cm; Wt 68.0 kg
[~2023-07-10] MED LIST changes: +ACET-10509 PO; +CEPH-588 PO; +IBUP-2213 PO
[2023-07-10 00:23] VITALS: BP 133/87; PULSE 97; RESP 18; TEMP 97.9; O2SAT 99
[2023-07-10 00:47] LABS: BASOPHILS % (AUTO) 0.2 % (0.0-2.0); EOSINOPHILS % (AUTO) 0.4 % (0.0-4.0); HEMOGLOBIN 13.5 g/dL (12.0-16.0); LYMPHOCYTES # (AUTO) 1.1 K/uL (2.5-16.5); MEAN CORPUSCULAR HEMOGLOBIN 32 pg (27-31); MEAN CORPUSCULAR HGB CONC 35 g/dL (33-37); MEAN CORPUSCULAR VOLUME 91.9 fL (80-94); MONOCYTES # (AUTO) 0.4 K/uL (0.8-1.0); MONOCYTES % (AUTO) 5.4 % (1.7-9.3); NEUTROPHILS # (AUTO) 6.5 K/uL (1.8-7.7); PLATELET COUNT (AUTO) 253 K/uL (140-450); RED BLOOD CELL COUNT(AUTO) 4.25 MIL/uL (4.20-5.40); RED CELL DISTRIBUTION WIDTH 12.3 % (11.6-13.7); WHITE BLOOD COUNT (AUTO) 8.1 K/uL (4.8-10.8)
[2023-07-10 00:58] LABS: ANION GAP 12.1 (8-16); CALCIUM 9.2 mg/dL (8.5-10.1); CARBON DIOXIDE 29.3 mmol/L (21-32); CREATININE 0.9 mg/dL (0.6-1.3); POTASSIUM 4.4 mmol/L (3.5-5.1)
[2023-07-10 01:02] LABS: ALBUMIN 3.6 g/dL (3.4-5.0); BILIRUBIN,DIRECT 0.1 mg/dL (0.0-0.3); TOTAL BILIRUBIN 0.4 mg/dL (0.0-1.0); TOTAL PROTEIN, SERUM 8.9 g/dL (6.4-8.2)
[2023-07-10 01:04] LABS: APPEARANCE,URINE CLEAR (CLEAR); BILIRUBIN,URINE NEGATIVE (NEGATIVE); BLOOD, URINE NEGATIVE (NEGATIVE); COLOR,URINE YELLOW (YELLOW); LEUKOCYTE ESTERASE ,URINE TRACE (NEGATIVE); NITRITE, URINE POSITIVE (NEGATIVE); PROTEIN,URINE NEGATIVE (NEGATIVE); UGLUCOSE 3+ (NEGATIVE); UROBILINOGEN,URINE 0.2 EU/dL (0.2 - 1)
[2023-07-10 01:07] LABS: BACTERIA,URINE >30 (MANY) /HPF (None Seen); RBC,URINE 0-5 /HPF (0-5); WBC,URINE 20-60 /HPF (0-5)
[2023-07-10 01:08] LABS: MUCUS,URINE 1+ /LPF (None Seen); SQUAMOUS EPITHELIAL CELL,UR 4-10 (MOD) /LPF (0-3 (FEW))
[2023-07-10] MEDS: KETOROLAC 60 MG/2 ML VIAL IM ONE (02:13)
[2023-07-10] MEDS ORDERED: CIPR500T4 PO (02:46)
[2023-07-10] MEDS ORDERED: ACET-503 PO (02:46)
[2023-07-10] MEDS ORDERED: ONDA8TAB87 PO (02:46)
[2023-07-10] MEDS: ONDANSETRON 4 MG ODT PO ONE (02:48)
[2023-07-10 02:55] VITALS: BP 100/61; PULSE 82; RESP 18; TEMP 98.3; O2SAT 97
== END 2023-07-10 02:54 | disposition home or self-care (01) ==
LOC: MED
DX: N39.0 Urinary tract infection, site not specified (principal); R51.9 Headache, unspecified; E11.9 Type 2 diabetes mellitus without complications; I11.9 Hypertensive heart disease without heart failure; Z79.4 Long term (current) use of insulin; Z79.899 Other long term (current) drug therapy
CPT/HCPCS: 36415; 70450; 80048; 80076; 81001; 81025; 83690; 85025; 87086; 96372; 99285; J1885; Q0162

== ENCOUNTER 2023-09-05 22:26 | Emergency (ER) | payer OTHER ==
[~2023-09-05] VITALS: Ht 149.9 cm; Wt 47.2 kg
[~2023-09-05 22:26] MED LIST changes: +ACET-503 PO; +CIPR500T4 PO; +ONDA8TAB87 PO
[2023-09-05 22:28] VITALS: BP 167/100; PULSE 103; RESP 18; TEMP 97.7; O2SAT 100
[2023-09-05 23:13] LABS: BASOPHILS % (AUTO) 0.5 % (0.0-2.0); EOSINOPHILS # (AUTO) 0.1 K/uL (0-0.4); EOSINOPHILS % (AUTO) 1.4 % (0.0-4.0); HEMATOCRIT 38.9 % (36-48); HEMOGLOBIN 13.6 g/dL (12.0-16.0); LYMPHOCYTES # (AUTO) 2.2 K/uL (2.5-16.5); LYMPHOCYTES % (AUTO) 32.4 % (20.5-51.1); MEAN CORPUSCULAR HEMOGLOBIN 31 pg (27-31); MEAN CORPUSCULAR HGB CONC 35 g/dL (33-37); MEAN CORPUSCULAR VOLUME 89.7 fL (80-94); MONOCYTES # (AUTO) 0.4 K/uL (0.8-1.0); MONOCYTES % (AUTO) 6.5 % (1.7-9.3); NEUTROPHILS # (AUTO) 4.1 K/uL (1.8-7.7); NEUTROPHILS % (AUTO) 59.2 % (42.2-75.2); PLATELET COUNT (AUTO) 226 K/uL (140-450); RED BLOOD CELL COUNT(AUTO) 4.34 MIL/uL (4.20-5.40); RED CELL DISTRIBUTION WIDTH 12.5 % (11.6-13.7); WHITE BLOOD COUNT (AUTO) 6.9 K/uL (4.8-10.8)
[2023-09-05] MEDS: MORPHINE SULFATE 4 MG/ML SYR IVP ONE (23:21)
[2023-09-05] MEDS: ASPIRIN 81 MG TAB.CHEW PO ONE (23:22)
[2023-09-05 23:26] LABS: ALBUMIN 4.3 g/dL (3.4-5.0); ANION GAP 14.2 (8-16); CALCIUM 9.8 mg/dL (8.5-10.1); CARBON DIOXIDE 28.2 mmol/L (21-32); CREATININE 0.7 mg/dL (0.6-1.3); POTASSIUM 3.4 mmol/L (3.5-5.1); TOTAL BILIRUBIN 0.5 mg/dL (0.0-1.0); TOTAL PROTEIN, SERUM 8.5 g/dL (6.4-8.2)
[2023-09-06] MEDS: NACL 0.9% 1,000 ML IV ONE (03:15)
[2023-09-06 04:20] VITALS: BP 105/69; PULSE 87; RESP 18; O2SAT 98
== END 2023-09-06 04:28 | disposition home or self-care (01) ==
LOC: MED 22:26
DX: R07.89 Other chest pain (principal); E11.9 Type 2 diabetes mellitus without complications; I10 Essential (primary) hypertension; E78.5 Hyperlipidemia, unspecified; Z79.84 Long term (current) use of oral hypoglycemic drugs; Z79.1 Long term (current) use of non-steroidal anti-inflammatories (NSAID); Z79.899 Other long term (current) drug therapy
CPT/HCPCS: 36415; 71045; 80053; 83880; 84484; 85025; 85379; 93005; 96361; 96374; 99285; J2270; J7030; Q0092

== ENCOUNTER 2023-10-24 23:01 | Emergency (ER) | payer OTHER ==
[~2023-10-24] VITALS: Ht 149.9 cm; Wt 64.4 kg
[2023-10-24 23:23] VITALS: BP 130/72; PULSE 107; RESP 18; TEMP 97.3; O2SAT 99
[2023-10-25 01:12] LABS: ANION GAP 11.2 (8-16); CALCIUM 8.8 mg/dL (8.5-10.1); CARBON DIOXIDE 25.6 mmol/L (21-32); CREATININE 0.9 mg/dL (0.6-1.3); POTASSIUM 3.8 mmol/L (3.5-5.1)
[2023-10-25 01:40] LABS: BASOPHILS % (AUTO) 0.3 % (0.0-2.0); EOSINOPHILS % (AUTO) 0.8 % (0.0-4.0); HEMATOCRIT 37.2 % (36-48); HEMOGLOBIN 12.7 g/dL (12.0-16.0); LYMPHOCYTES # (AUTO) 0.9 K/uL (2.5-16.5); LYMPHOCYTES % (AUTO) 17.2 % (20.5-51.1); MEAN CORPUSCULAR HEMOGLOBIN 31 pg (27-31); MEAN CORPUSCULAR HGB CONC 34 g/dL (33-37); MEAN CORPUSCULAR VOLUME 91.4 fL (80-94); MONOCYTES # (AUTO) 0.4 K/uL (0.8-1.0); MONOCYTES % (AUTO) 7.1 % (1.7-9.3); NEUTROPHILS # (AUTO) 3.7 K/uL (1.8-7.7); NEUTROPHILS % (AUTO) 74.6 % (42.2-75.2); PLATELET COUNT (AUTO) 216 K/uL (140-450); RED BLOOD CELL COUNT(AUTO) 4.07 MIL/uL (4.20-5.40); RED CELL DISTRIBUTION WIDTH 13.5 % (11.6-13.7)
[2023-10-25 01:41] LABS: FLU B ANTIGEN negative (NEGATIVE)
[2023-10-25 01:46] LABS: FLU A ANTIGEN POSITIVE (NEGATIVE)
[2023-10-25] MEDS: DICYCLOMINE 10 MG CAP PO ONE (02:19)
[2023-10-25] MEDS: ONDANSETRON 4 MG ODT PO ONE (02:20)
[2023-10-25] MEDS: KETOROLAC 30 MG/ML VIAL IM ONE (02:21)
[2023-10-25] MEDS: ACETAMINOPHEN EXTRA STRENGTH 500 MG TAB PO ONE (02:22)
[2023-10-25 03:42] LABS: ALBUMIN 3.7 g/dL (3.4-5.0); BILIRUBIN,DIRECT 0.1 mg/dL (0.0-0.3); TOTAL BILIRUBIN 0.6 mg/dL (0.0-1.0); TOTAL PROTEIN, SERUM 8.1 g/dL (6.4-8.2)
[2023-10-25] MEDS ORDERED: ONDA-188 PO (04:08)
[2023-10-25 04:14] VITALS: BP 130/72; PULSE 107; RESP 18; TEMP 97.3; O2SAT 99
== END 2023-10-25 04:13 | disposition home or self-care (01) ==
LOC: MED 23:01
DX: J10.1 Influenza due to other identified influenza virus with other respiratory manifestations (principal); R19.7 Diarrhea, unspecified; R10.9 Unspecified abdominal pain; E11.9 Type 2 diabetes mellitus without complications; I10 Essential (primary) hypertension; Z20.822 Contact with and (suspected) exposure to COVID-19; Z79.84 Long term (current) use of oral hypoglycemic drugs; Z79.2 Long term (current) use of antibiotics; Z79.1 Long term (current) use of non-steroidal anti-inflammatories (NSAID); Z79.899 Other long term (current) drug therapy
CPT/HCPCS: 36415; 80048; 80076; 81002; 81025; 83690; 85025; 87426; 87804; 96372; 99284; J1885; Q0162

== ENCOUNTER 2023-11-12 01:19 | Emergency (ER) | payer OTHER ==
[~2023-11-12] VITALS: Ht 149.9 cm; Wt 59.4 kg
[~2023-11-12 01:19] MED LIST changes: +ONDA-188 PO
[2023-11-12 01:26] VITALS: BP 132/85; PULSE 92; RESP 16; TEMP 98.3; O2SAT 99
[2023-11-12] MEDS: KETOROLAC 30 MG/ML VIAL IM ONE (02:14)
[2023-11-12] MEDS ORDERED: IBUP-2213 PO (03:41)
[2023-11-12 03:55] VITALS: BP 132/85; PULSE 92; RESP 16; TEMP 98.3; O2SAT 99
== END 2023-11-12 03:55 | disposition home or self-care (01) ==
LOC: MED 01:19
DX: S90.122A Contusion of left lesser toe(s) without damage to nail, initial encounter (principal); E11.9 Type 2 diabetes mellitus without complications; I10 Essential (primary) hypertension; Z86.79 Personal history of other diseases of the circulatory system; Z79.1 Long term (current) use of non-steroidal anti-inflammatories (NSAID); Z79.2 Long term (current) use of antibiotics; Z79.84 Long term (current) use of oral hypoglycemic drugs; Z79.899 Other long term (current) drug therapy; X58.XXXA Exposure to other specified factors, initial encounter; Y93.89 Activity, other specified; Y92.89 Other specified places as the place of occurrence of the external cause; Y99.8 Other external cause status
CPT/HCPCS: 73630; 73660; 96372; 99284; J1885